=== PATIENT | female | born 1960 | race Caucasian/White ===

== ENCOUNTER 2018-11-02 17:55 | Inpatient (IN) ==
--- NOTE | 2018-11-02 19:14 | Emergency Department Note ---
Disposition Clinical Impression: Weakness, UTI (urinary tract infection), Diabetes, Hypokalemia Disposition: Admitted As Inpatient Condition: Fair Referrals: David Cardenas, ASSOCIATE PROF[employer] [Primary Care Provider] - Forms: ED Satisfaction Letter Time of Dis[facility]: 20:23 [facility]ness HPI - General Chief complaint: ED Weakness Stated complaint: Rib Pain, Back Pain Source: patient Limitations: no limitations - History of Present Illness HPI Narrative: 58-year-old female who presents to the emergency room his had frequent falls since the beginning of the year she could recall one on the first the third the seventh around multiple other falls since then for the last 2 weeks she has not gotten up off the couch she is had food delivered to her house every other day because she is unable to get them fixed it has not been off the couch 2 weeks patient states that her was taking care of her until he went into hospice and her grandson was staying with her help in getting food to until they had no water at the house and they are using heat with 3 electric heater's stable as result though she has not been off the couch in 2 weeks and she was able to reach her self which had just out of battery left she called 911 today patient states that she hurts on the left chest and rib area she is been unable to get up states it hurts to breathe states that she has had no calf pain no swelling she has had cough congestion she has had no neck pain no neck stiffness she has had urgency frequency she denies though any additional complaints she is a moderate historian systems have been reviewed and otherwise negative Patient has not checked her sugar she has not been able to get to her medications in the last couple of days Pt Subjective Complaint: generalized weakness/fatigue Onset (ago): week(s) (3-4) Duration: constant, gradually worsening Location: generalized Migration: other (global) Pain Severity: severe Pain Scale: 10 If pain, quality: aching Improves with: none Worsens with: none Context: trauma/injury (from falls ) Associated symptoms: Reports: chest pain, loss of appetite, myalgias. Denies: confusion, dark stools, diaphoresis, dysuria, easy bruising, fever/chills, headaches, nausea/vomiting, rash, shortness of breath, syncope - Related Data Home Medications Medication Instructions Recorded Confirmed Baclofen [Lioresal] 10 mg PO QID 09/10/15 08/22/16 Duloxetine [Cymbalta] 60 mg PO DAILY 06/11/15 05/23/16 Furosemide [Lasix] 80 mg PO DAILY 06/11/15 05/23/16 Gabapentin [Neurontin] 600 mg PO TID 06/11/15 05/23/16 Glimepiride [Amaryl] 4 mg PO DAILY 06/11/15 05/23/16 Hydrocodone/Acetaminophen [[place] 0.5 tab PO TID 06/11/15 05/23/16 5-325 Tablet] Imipramine HCl [Tofranil] 50 mg PO HS 06/11/15 05/23/16 Metoprolol [Lopressor] 100 mg PO BID 06/11/15 05/23/16 [place]-3S/Dha/Epa/Fish Oil [Fish 1,400 mg PO DAILY 06/11/15 05/23/16 Oil 1,200 mg Softgel] Omeprazole [PriLOSEC] 40 mg PO DAILY 06/11/15 05/23/16 Ropinerole [Requip] 1 mg PO TID 06/11/15 05/23/16 Spironolactone [Aldactone] 25 mg PO DAILY 06/11/15 05/23/16 Previous Rx's Medication Instructions Recorded cephALEXin [Keflex] 500 mg PO BID #20 capsule 05/23/16 Allergies Allergy/AdvReac Type Severity Reaction Status Date / Time levofloxacin [From Levaquin] AdvReac Muscle Pain Verified 06/11/15 21:49 [id number]-Hwa Reductase AdvReac Muscle Pain Verified 06/11/15 21:49 Inhibitor [Statins] All systems ED: reviewed and negative except as stated. Review of Systems: As Per HPI Constitutional: Reports: weakness. Denies: fever, chills Eyes: Denies: eye pain, eye discharge ENT ED: Denies: ear pain, throat pain, dental pain Cardiovascular: Reports: chest pain. Denies: palpitations, dyspnea on exertion, syncope Respiratory: Reports: cough, dyspnea, wheezes Gastrointestinal: Denies: abdominal pain, nausea, vomiting Genitourinary: Reports: urgency, dysuria, frequency Musculoskeletal: Denies: back pain, neck pain Integumentary: Denies: rash, abrasion Neurological: Reports: weakness. Denies: headache Psychiatric: Denies: anxiety, depression Endocrine: Reports: fatigue Hematological/Lymphatic: Denies: easy bleeding Allergic/Immunologic: Denies: facial swelling Past Medical History - Past Medical History Attestation: Yes The following information was validated with the patient. PMFSH Narrative: reportedly in hospice ad grandson now with mom where there is water and food and heat Source: patient, old records reviewed, nursing notes reviewed, other (no family presentwith her ) Medical history: Reports: arthritis, diabetes, fibromyalgia, GERD, hyperlipidemia, hypertension, migraine, peripheral artery disease, other Surgical history: Reports: cholecystectomy, hysterectomy, orthopedic, other (Scope left knee, right foot surgery, bilateral carpal tunnel), other (Bladder suspension) Psychiatric history: Reports: anxiety, bipolar, depression - Social History Smoking Status: Current every day smoker Smokeless Tobacco Status: No Alcohol use: Reports: none Drug use: Reports: none Physical Exam - General Limitations: no limitations General appearance: alert, in no apparent distress, obese - Head Head exam: atraumatic, normocephalic, normal inspection - Eye Eye exam: Present: normal appearance, PERRL, EOMI - ENT ENT exam: normal exam, normal oropharynx, mucous membranes moist, TM's normal bilaterally, normal external ear exam - Neck Neck exam: Present: normal inspection, full ROM, trachea midline - Chest Chest inspection: Present: normal inspection, symmetric chest wall rise - Respiratory Respiratory exam: Present: normal lung sounds bilaterally - Cardiovascular Cardiovascular exam: Present: regular rate, normal rhythm, normal heart sounds - Abdominal Exam Abdominal exam: Present: soft, Non-Tender, diminished bowel sounds. Absent: ma ss, pulsatile mass - Extremities Exam Extremities exam: Present: normal inspection, full ROM, normal capillary refill. Absent: tenderness, pedal edema, joint swelling, calf tenderness - Expanded Lower Extremity Exam Neurovascular/Tendon exam: Present: normal capillary refill, normal fine/light touch Gait: not tested/not observed - Back Exam Back exam: Present: normal inspection, full ROM. Absent: muscle spasm - Neurological Exam Neurological exam: Present: alert, oriented X3, CN II-XII intact, normal gait - Psychiatric Psychiatric exam: Present: normal affect, normal mood - Skin Skin exam: Present: warm, dry, intact, normal color, other (For her history of the tissue was not may seated around the pelvic region) Course Course Narrative: Patient was immediately seen and examined patient had a slowly moving patient fully catheter placed patient was then admitted transfer to [facility] stable Vital Signs Temperature 97.9 F 11/02/18 18:00 Pulse Rate 76 11/02/18 18:00 Respiratory Rate 16 11/02/18 18:00 Blood Pressure 164/81 11/02/18 18:00 O2 Sat by Pulse Oximetry 98 11/02/18 18:00 Temperature 97.9 F 11/02/18 18:00 Pulse Rate 76 11/02/18 18:00 Respiratory Rate 16 11/02/18 18:00 Blood Pressure 164/81 11/02/18 18:00 O2 Sat by Pulse Oximetry 98 11/02/18 18:00 Oxygen Delivery Oxygen Delivery Room Air Weakness - Differential Diagnosis Differential Diagnosis: Likely: anemia, hypoglycemia, sepsis/infection, dehydration, medication effect, stroke, metabolic, thyroid/endocrine disorder - Medical Records Medical records reviewed: Yes I reviewed the patient's medical records. - Lab Data Lab results reviewed: Yes I reviewed the patient's lab results. Result diagrams: 11/02/18 19:09 11/02/18 19:09 Lab Results 11/02/18 11/02/18 11/02/18 Range/Units 19:09 19:09 19:09 WBC 15.4 H (4.3-11.1) K/mcL RBC 4.55 (3.82-4.97) M/mcL Hgb 13.4 (11.5-15.4) g/dL Hct 39.9 (35.3-44.9) % MCV 87.7 (83.0-100.0) fL MCH 29.5 (28.0-33.3) pg MCHC 33.6 (31.6-35.5) g/dL RDW 13.1 (11.5-14.5) % Plt Count 404 H (140-400) K/mcL MPV 10.8 (9.4-12.4) fL Immature Gran % 0.6 (0-4) % Seg Neutrophils % 76.0 % Lymphocytes % 17.6 % Monocytes % 4.5 % Eosinophils % 0.9 % Basophils % 0.4 % Neutrophils # 11.7 H (1.6-8.9) K/mcL Lymphocytes # 2.7 (0.6-4.6) K/mcL Monocytes # 0.7 (0.0-1.3) K/mcL Eosinophils # 0.1 (0.0-0.6) K/mcL Basophils # 0.1 (0.0-0.2) K/mcL PT 13.6 H (9.4-12.1) Seconds INR 1.2 APTT 33.0 (26.0-36.0) Seconds Sodium (136-145) mEq/L Potassium (3.5-5.1) mEq/L Chloride (98-107) mEq/L Carbon Dioxide (23-29) mEq/L BUN (8-23) mg/dL Creatinine (0.60-1.20) mg/dL Est GFR ( Amer) (> 60) Est GFR (Non-Af Amer) (> 60) BUN/Creatinine Ratio (6-26) Glucose (70-105) mg/dL Calculated Osmolality (280-300) Lactic Acid (0.5-2.2) mmol/L Calcium (8.6-10.3) mg/dL Magnesium (1.6-2.6) mg/dL Total Bilirubin (0.3-1.0) mg/dL AST (13-39) Units/L ALT (7-52) Units/L Alkaline Phosphatase (34-104) Units/L Troponin I (< 0.04) ng/mL Serum Total Protein (6.4-8.9) g/dL Albumin (3.5-5.7) g/dL Globulin (2.4-3.5) g/dL Albumin/Globulin Ratio (1.1-2.2) TSH (0.340-5.600) mcIU/mL Urine Color (Yellow) Urine Clarity (Clear) Urine pH (5.0-8.0) pH Units Ur Specific [facility] (1.010-1.025) Urine Protein (Neg-Trace) mg/dL Urine Glucose (UA) (Normal) mg/dL Urine Ketones (Negative) mg/dL Urine Blood (Negative) Urine Nitrite (Negative) Urine Bilirubin (Negative) Urine Urobilinogen (Normal) mg/dL Ur Leukocyte Esterase (Negative) Urine Microscopic RBC (0-3) per hpf Urine Microscopic WBC (0-3) per hpf Ur Squamous Epith Cells (None-Few) per lpf Urine Bacteria (None-Few) per hpf Ur Culture Indicated? (NO) 11/02/18 11/02/18 11/02/18 Range/Units 19:09 19:09 19:24 WBC (4.3-11.1) K/mcL RBC (3.82-4.97) M/mcL Hgb (11.5-15.4) g/dL Hct (35.3-44.9) % MCV (83.0-100.0) fL MCH (28.0-33.3) pg MCHC (31.6-35.5) g/dL RDW (11.5-14.5) % Plt Count (140-400) K/mcL MPV (9.4-12.4) fL Immature Gran % (0-4) % Seg Neutrophils % % Lymphocytes % % Monocytes % % Eosinophils % % Basophils % % Neutrophils # (1.6-8.9) K/mcL Lymphocytes # (0.6-4.6) K/mcL Monocytes # (0.0-1.3) K/mcL Eosinophils # (0.0-0.6) K/mcL Basophils # (0.0-0.2) K/mcL PT (9.4-12.1) Seconds INR APTT (26.0-36.0) Seconds Sodium 135 L (136-145) mEq/L Potassium 2.9 L (3.5-5.1) mEq/L Chloride 98 (98-107) mEq/L Carbon Dioxide 29 (23-29) mEq/L BUN 19 (8-23) mg/dL Creatinine 0.71 (0.60-1.20) mg/dL Est GFR ( Amer) > 60 (> 60) Est GFR (Non-Af Amer) > 60 (> 60) BUN/Creatinine Ratio 27 H (6-26) Glucose 123 H (70-105) mg/dL Calculated Osmolality 284 (280-300) Lactic Acid 1.8 (0.5-2.2) mmol/L Calcium 9.2 (8.6-10.3) mg/dL Magnesium 1.8 (1.6-2.6) mg/dL Total Bilirubin 0.3 (0.3-1.0) mg/dL AST 15 (13-39) Units/L ALT 12 (7-52) Units/L Alkaline Phosphatase 105 H (34-104) Units/L Troponin I < 0.03 (< 0.04) ng/mL Serum Total Protein 6.6 (6.4-8.9) g/dL Albumin 3.6 (3.5-5.7) g/dL Globulin 3.0 (2.4-3.5) g/dL Albumin/Globulin Ratio 1.2 (1.1-2.2) TSH 5.040 (0.340-5.600) mcIU/mL Urine Color Yellow (Yellow) Urine Clarity Cloudy A (Clear) Urine pH 6.0 (5.0-8.0) pH Units Ur Specific [facility] >= 1.030 H (1.010-1.025) Urine Protein >=300 H (Neg-Trace) mg/dL Urine Glucose (UA) Normal (Normal) mg/dL Urine Ketones Negative (Negative) mg/dL Urine Blood Trace-lysed H (Negative) Urine Nitrite Positive A (Negative) Urine Bilirubin Small H (Negative) Urine Urobilinogen 2.0 H (Normal) mg/dL Ur Leukocyte Esterase Negative (Negative) Urine Microscopic RBC 0-3 (0-3) per hpf Urine Microscopic WBC 5-15 H (0-3) per hpf Ur Squamous Epith Cells Moderate H (None-Few) per lpf Urine Bacteria Many H (None-Few) per hpf Ur Culture Indicated? YES A (NO) - Radiology Data Radiology results reviewed: Yes I reviewed the patient's radiology results. ITS Impressions Chest X-Ray 11/02/18 18:30 IMPRESSION: No acute findings. D/ / Luis Graham MD / Luis Graham MD Interpreting Provider: Luis Graham MD Critical Care Time Critical Care Time: No
[2018-11-02 19:23] LABS: Basophils # 0.1 K/mcL (0.0-0.2); Basophils % 0.4 %; Eosinophils # 0.1 K/mcL (0.0-0.6); Eosinophils % 0.9 %; Hematocrit 39.9 % (35.3-44.9); Hemoglobin 13.4 g/dL (11.5-15.4); Immature Granulocytes % 0.6 % (0-4); Lymphocytes # 2.7 K/mcL (0.6-4.6); Lymphocytes % 17.6 %; Mean Corpuscular HGB Conc 33.6 g/dL (31.6-35.5); Mean Corpuscular Hemoglobin 29.5 pg (28.0-33.3); Mean Corpuscular Volume 87.7 fL (83.0-100.0); Mean Platelet Volume 10.8 fL (9.4-12.4); Monocytes # 0.7 K/mcL (0.0-1.3); Monocytes % 4.5 %; Neutrophils # 11.7 K/mcL (1.6-8.9); Platelet Count 404 K/mcL (140-400); Red Blood Count 4.55 M/mcL (3.82-4.97); Red Cell Distribution Width 13.1 % (11.5-14.5)
[2018-11-02 19:28] LABS: Bilirubin,Urine Small (Negative); Blood,Urine Trace-lysed (Negative); Clarity,Urine Cloudy (Clear); Color,Urine Yellow (Yellow); Glucose,Urine (UA) Normal (Normal); Ketones,Urine Negative (Negative); Leukocyte Esterase,Urine Negative (Negative); Nitrite,Urine Positive (Negative); Protein,Urine >=300 mg/dL (Neg-Trace); Specific Gravity,Urine >= 1.030 (1.010-1.025)
[2018-11-02 19:33] LABS: INR 1.2; Prothrombin Time 13.6 Seconds (9.4-12.1)
[2018-11-02 19:34] LABS: Alanine Aminotransferase 12 Units/L (7-52); Albumin 3.6 g/dL (3.5-5.7); Albumin/Globulin Ratio 1.2 (1.1-2.2); Alkaline Phosphatase 105 Units/L (34-104); Aspartate Amino Transferase 15 Units/L (13-39); BUN/Creatinine Ratio 27 (6-26); Bilirubin,Total 0.3 mg/dL (0.3-1.0); Blood Urea Nitrogen 19 mg/dL (8-23); Calcium 9.2 mg/dL (8.6-10.3); Carbon Dioxide 29 mEq/L (23-29); Chloride 98 mEq/L (98-107); Glucose 123 mg/dL (70-105); Magnesium 1.8 mg/dL (1.6-2.6); Osmolality,Calculated 284 (280-300); Potassium 2.9 mEq/L (3.5-5.1); Sodium 135 mEq/L (136-145); Total Protein 6.6 g/dL (6.4-8.9); eGFR For Non-African Americans > 60 (> 60)
[2018-11-02 19:35] LABS: Troponin I < 0.03 ng/mL (< 0.04)
[2018-11-02 19:50] LABS: Bacteria,Urine Many per hpf (None-Few); RBC,Urine 0-3 per hpf (0-3); Squamous Epithelial Cell,Urine Moderate per lpf (None-Few)
[2018-11-02] MEDS ORDERED: Potassium Effervescent 25 MEQ TABLET.EFF PO ONE (20:13)
[2018-11-02] MEDS ORDERED: 0.9 % Sodium Chloride 1,000 ML IVC SCH (20:15)
[2018-11-02] MEDS ORDERED: cloNIDine HCl 0.1 MG TABLET PO STA (20:26)
[2018-11-02] MEDS ORDERED: Naloxone 0.4 MG/ML INJ IVP PRN (22:07)
[2018-11-02] MEDS ORDERED: D5% in Water 1,000 ML IVC PRN (22:07)
[2018-11-02] MEDS ORDERED: Gabapentin 300 MG CAPSULE PO SCH (22:07)
[2018-11-02] MEDS ORDERED: rOPINIRole 1 MG TABLET PO SCH (22:07)
[2018-11-02] MEDS ORDERED: Acetaminophen 325 MG TABLET PO PRN (22:07)
[2018-11-02] MEDS ORDERED: Baclofen 10 MG TABLET PO SCH (22:07)
[2018-11-02] MEDS ORDERED: *HR* HYDROcodone/Acet 5/325 mg TABLET PO SCH (22:07)
[2018-11-02] MEDS ORDERED: *HR* Dextrose 50 % in Water (Syg) 50 ML SYRINGE IVP PRN (22:07)
[2018-11-02] MEDS ORDERED: Dextrose Gel 15 GM/37.5 ML TUBE PO PRN ×2 (22:07)
[2018-11-02] MEDS: 0.9 % Sodium Chloride 1,000 ML IVC SCH (23:00)
[2018-11-03] MEDS: Metoprolol 100 MG TABLET PO SCH ×3 (01:39→21:17)
[2018-11-03] MEDS: Ibuprofen 400 MG TABLET PO PRN ×3 (04:29→23:25)
[2018-11-03] MEDS: 0.9 % Sodium Chloride 1,000 ML IVC SCH ×3 (04:42→21:32)
[2018-11-03 06:22] LABS: Basophils # 0.1 K/mcL (0.0-0.2); Basophils % 0.5 %; Eosinophils # 0.2 K/mcL (0.0-0.6); Eosinophils % 1.3 %; Hematocrit 36.1 % (35.3-44.9); Hemoglobin 11.9 g/dL (11.5-15.4); Immature Granulocytes % 0.4 % (0-4); Lymphocytes # 3.1 K/mcL (0.6-4.6); Lymphocytes % 25.9 %; Mean Corpuscular Hemoglobin 28.5 pg (28.0-33.3); Mean Corpuscular Volume 86.6 fL (83.0-100.0); Mean Platelet Volume 10.4 fL (9.4-12.4); Monocytes # 0.6 K/mcL (0.0-1.3); Monocytes % 5.2 %; Neutrophils # 7.9 K/mcL (1.6-8.9); Platelet Count 349 K/mcL (140-400); Red Blood Count 4.17 M/mcL (3.82-4.97); Red Cell Distribution Width 13.1 % (11.5-14.5); Segmented Neutrophils % 66.7 %
[2018-11-03 06:23] LABS: INR 1.2; Prothrombin Time 13.9 Seconds (9.4-12.1)
[2018-11-03 06:26] LABS: Activated Partial Thrombo Time 30.6 Seconds (26.0-36.0)
[2018-11-03 06:35] LABS: BUN/Creatinine Ratio 23 (6-26); Blood Urea Nitrogen 17 mg/dL (8-23); Calcium 8.4 mg/dL (8.6-10.3); Carbon Dioxide 28 mEq/L (23-29); Chloride 104 mEq/L (98-107); Glucose 102 mg/dL (70-105); Osmolality,Calculated 286 (280-300); Sodium 137 mEq/L (136-145); eGFR For Non-African Americans > 60 (> 60)
[2018-11-03] MEDS: Insulin LISPRO 300 UNITS/3 ML VIAL SQ SCH ×3 (07:55→17:17)
[2018-11-03] MEDS: Aspirin 81 MG TAB.CHEW PO SCH (08:01)
[2018-11-03] MEDS: *HR* Glimepiride 4 MG TABLET PO SCH (08:01)
[2018-11-03] MEDS: rOPINIRole 1 MG TABLET PO SCH ×3 (08:01→21:17)
[2018-11-03] MEDS: Nystatin POWDER 30 GM BOTTLE TP SCH ×3 (08:02→21:16)
[2018-11-03] MEDS: (Fish Oil 1,200 Mg Softgel) PO SCH (08:02)
[2018-11-03] MEDS: TRADJENTA PO SCH ×2 (08:04→08:30)
[2018-11-03] MEDS ORDERED: Spironolactone 25 MG TABLET PO SCH (09:00)
[2018-11-03] MEDS ORDERED: Potassium Effervescent 25 MEQ TABLET.EFF PO ONE (09:00)
[2018-11-03] MEDS ORDERED: *HR* Glimepiride 4 MG TABLET PO SCH (09:00)
[2018-11-03] MEDS ORDERED: Furosemide 20 MG TABLET PO SCH (09:00)
[2018-11-03] MEDS ORDERED: *HR* Enoxaparin 40 MG/0.4 ML SYRINGE SQ ONE (15:37)
--- NOTE | 2018-11-03 15:46 | Internal Med History&Physical ---
Date of Encounter: 11/04/18 Time of Encounter: 15:15 Assessment and Plan (1) Cellulitis and abscess of other specified site Current visit: Yes Status: Acute cellulitis and excoriation left abd skin folds will ise rocephin IV will use topical aloe vesta care has leukocytosis will follow lab (2) UTI (urinary tract infection) Current visit: Yes Status: Acute culture pending will treat with IV rocephin until culture returns Qualifiers: Urinary tract infection type: acute cystitis Hematuria presence: without hematuria Qualified Code(s): N30.00 - Acute cystitis without hematuria (3) Hypokalemia Current visit: Yes Status: Acute likely dietary cause as has not been eating well will replace and repeat labs (4) Diabetes Current visit: Yes Status: Acute pt has not been taking medication will use slide scale for now and slowly restart home meds Qualifiers: Diabetes mellitus type: type 2 Diabetes mellitus complication detail: with dermatitis Qualified Code(s): E11.620 - Type 2 diabetes mellitus with diabetic dermatitis Internal Medicine - H&P: HPI Chief complaint: abdominal pannus cellulitis, uti Admitted From: Home History of present illness: Ms. Barkley is a 58 year old female with CC of cellulitis abdominal folds and UTI - History of Present Illness HPI Narrative: 58-year-old female who presents to the emergency room after calling 911 from home. She reports she has been progressively weaker and had not been able to get off couch without falling . She reports felt hot and noted some pain with urination. She noted redness spreading around left side of abdominal pannus fold. She says the area was itching and had thick white material in the folds of skin, says she scratched at it and now it hurts. 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 Says she was told she needed to have her knees replaced and has not done that. Says she has a walker at home. Says has had frequent falls since the beginning of the year. Her was put in the hospital and so she has had food delivered to her house every other day . Says her grandson was staying with her, but she says no water or heat at the house . So she says he left. Pt says she used 3 electric heater's . Pt reported to have bug on her person in ED avilez and/or bedbug was treated PT denies vomiting, denies CP, denies calf pain no swelling . She says she does smoke, says she used to smoke 4 PPD, Says she could not sleep so smoked all the time. says now she does not smoke as much. She is a vague historian. She is on seroguel at home.for bipolar disease. Denies SI. She has type 2 diabetes. Says she has not had her medication at home for about a week. - Related Data Home Medications Medication Instructions Recorded Confirmed Baclofen [Lioresal] 10 mg PO QID 06/11/15 05/23/16 Duloxetine [Cymbalta] 60 mg PO DAILY 06/11/15 05/23/16 Furosemide [Lasix] 80 mg PO DAILY 06/11/15 05/23/16 Gabapentin [Neurontin] 600 mg PO TID 06/11/15 05/23/16 Glimepiride [Amaryl] 4 mg PO DAILY 06/11/15 05/23/16 Hydrocodone/Acetaminophen [[place] 0.5 tab PO TID 06/11/15 05/23/16 5-325 Tablet] Imipramine HCl [Tofranil] 50 mg PO HS 06/11/15 05/23/16 Metoprolol [Lopressor] 100 mg PO BID 06/11/15 05/23/16 [place]-3S/Dha/Epa/Fish Oil [Fish 1,400 mg PO DAILY 06/11/15 05/23/16 Oil 1,200 mg Softgel] Omeprazole [PriLOSEC] 40 mg PO DAILY 06/11/15 05/23/16 Ropinerole [Requip] 1 mg PO TID 06/11/15 05/23/16 Spironolactone [Aldactone] 25 mg PO DAILY 06/11/15 05/23/16 Previous Rx's Medication Instructions Recorded cephALEXin [Keflex] 500 mg PO BID #20 capsule 05/23/16 Allergies Allergy/AdvReac Type Severity Reaction Status Date / Time levofloxacin [From Levaquin] AdvReac Muscle Pain Verified 06/11/15 21:49 [id number]-Vrq Reductase AdvReac Muscle Pain Verified 06/11/15 21:49 Inhibitor [Statins] All systems Review: reviewed and negative except as stated. Past Medical History - Past Medical History Medical history: Reports: arthritis, diabetes, fibromyalgia, GERD, hyperlipidemia, hypertension, migraine, peripheral artery disease, Surgical history: Reports: cholecystectomy, hysterectomy, orthopedic, other (Scope left knee, right foot surgery, bilateral carpal tunnel), (Bladder suspension) Psychiatric history: Reports: anxiety, bipolar, depression - Social History Smoking Status: Current every day smoker was up to 4 ppd she says in past adv ised her to stop smoking Smokeless Tobacco Status: No Alcohol use: Reports: none Drug use: Reports: none Physical Exam - General General appearance: alert, unkempt body odor irritable but oriented x 3, obese - Head Head exam: atraumatic, normocephalic, normal inspection - Eye Eye exam: Present: normal appearance, PERRL, EOMI - ENT ENT exam: normal oropharynx, mucous membranes dry, TM's normal bilaterally, normal external ear exam - Neck Neck exam: Present: full ROM, trachea midline thick neck - Chest Chest inspection: Present: normal inspection, symmetric chest wall rise - Respiratory Respiratory exam: Present: normal lung sounds bilaterally - Cardiovascular Cardiovascular exam: Present: regular rate, normal rhythm, normal heart sounds - Abdominal Exam Abdominal exam: large obese abd with multiple pannus folds left side has marked excoriations, surrounded by dark red erythema and warmth - Extremities Exam Extremities exam: Present: normal inspection, full ROM, arthritic changes bilateral knees . Absent: tenderness, pedal edema, joint swelling, calf tenderness - Neurological Exam Neurological exam: Present: alert, oriented X3, CN II-XII intact, gait not tested no gross deficits - Psychiatric Psychiatric exam: Present: irritable follows commands Past Med Surg Social Fam HX - Past Medical History Medical history: arthritis, diabetes, fibromyalgia, GERD, hyperlipidemia, hypertension, migraine, peripheral artery disease, other Psychiatric history: anxiety, bipolar, depression - Past Surgical History Surgical History: cholecystectomy, hysterectomy, orthopedic, other, other - Social History Smoking Status: Current every day smoker Smokeless Tobacco Status: No Alcohol use: none Drug use: none - Family History Mother History Unknown: Yes Father History Unknown: Yes Internal Medicine - H&P: Meds Duloxetine [Cymbalta] 60 mg PO DAILY 06/11/15 [History] Glimepiride [Amaryl] 8 mg PO DAILY 06/11/15 [History] Metoprolol [Lopressor] 100 mg PO BID 06/11/15 [History] [place]-3S/Dha/Epa/Fish Oil [Fish Oil 1,200 mg Softgel] 1,400 mg PO DAILY 06/11/15 [History] Omeprazole [PriLOSEC] 20 mg PO DAILY 06/11/15 [History] Ropinerole [Requip] 1 mg PO QPM 06/11/15 [History] Aspirin 81 mg PO DAILY 11/02/18 [History] Linagliptin [Tradjenta] 5 mg PO DAILY 11/02/18 [History] Ropinirole HCl [Requip] 4 mg PO HS 11/02/18 [History] rOPINIRole [Requip] 1 mg PO DAILY 11/02/18 [History] Quetiapine Fumarate [Seroquel] 50 mg PO 2100 11/03/18 [History] Allergy/AdvReac Type Severity Reaction Status Date / Time levofloxacin [From Levaquin] AdvReac Muscle Pain Verified 06/11/15 21:49 [id number]-[id number] Reductase AdvReac Muscle Pain Verified 06/11/15 21:49 Inhibitor [Statins] All Systems PM: A 10-system review of systems was performed and is negative for pertinent findings except as documented above in the HPI. - Constitutional Vitals: Temp Pulse Resp BP Pulse Ox 98.1 F 67 16 119/73 97 11/03/18 11:00 11/03/18 11:00 11/03/18 11:00 11/03/18 11:00 11/03/18 11:00 Internal Med - H&P Results - Labs CBC & Chem 7: 11/03/18 05:40 11/03/18 05:40 Labs: Short CBC 11/02/18 11/03/18 Range/Units 19:09 05:40 WBC 15.4 H 11.8 H (4.3-11.1) K/mcL Hgb 13.4 11.9 D (11.5-15.4) g/dL Hct 39.9 36.1 (35.3-44.9) % Plt Count 404 H 349 (140-400) K/mcL Neutrophils # 11.7 H 7.9 (1.6-8.9) K/mcL BMP 11/02/18 11/03/18 19:09 05:40 Sodium 135 L 137 Potassium 2.9 L 3.0 L Chloride 98 104 Carbon Dioxide 29 28 BUN 19 17 Creatinine 0.71 0.73 Glucose 123 H 102 Calcium 9.2 8.4 L Cardiac Enzymes 11/02/18 Range/Units 19:09 Troponin I < 0.03 (< 0.04) ng/mL Liver Function 11/02/18 Range/Units 19:09 Total Bilirubin 0.3 (0.3-1.0) mg/dL AST 15 (13-39) Units/L ALT 12 (7-52) Units/L Alkaline Phosphatase 105 H (34-104) Units/L Albumin 3.6 (3.5-5.7) g/dL Urine 11/02/18 Range/Units 19:24 Urine Color Yellow (Yellow) Urine Clarity Cloudy A (Clear) Urine pH 6.0 (5.0-8.0) pH Units Ur Specific [place] >= 1.030 H (1.010-1.025) Urine Protein >=300 H (Neg-Trace) mg/dL Urine Glucose (UA) Normal (Normal) mg/dL - Impressions ITS Impressions Chest X-Ray 11/02/18 18:30 IMPRESSION: No acute findings. D/ / Luis Graham MD / Luis Graham MD Interpreting Provider: Luis Graham MD
[2018-11-03] MEDS: Miconazole 2% ointment 114 GM TUBE TP SCH (16:22)
[2018-11-04] MEDS: *HR* Enoxaparin 40 MG/0.4 ML SYRINGE SQ SCH (05:40)
[2018-11-04] MEDS: Ibuprofen 400 MG TABLET PO PRN ×2 (05:44→23:14)
[2018-11-04] MEDS: 0.9 % Sodium Chloride 1,000 ML IVC SCH ×3 (05:47→23:07)
[2018-11-04] MEDS: *HR* Glimepiride 4 MG TABLET PO SCH (08:24)
[2018-11-04] MEDS: Insulin LISPRO 300 UNITS/3 ML VIAL SQ SCH ×3 (08:24→16:33)
[2018-11-04] MEDS: Metoprolol 100 MG TABLET PO SCH ×2 (08:28→20:34)
[2018-11-04] MEDS: Nystatin POWDER 30 GM BOTTLE TP SCH ×3 (08:28→20:34)
[2018-11-04] MEDS: Miconazole 2% ointment 114 GM TUBE TP SCH (08:28)
[2018-11-04] MEDS: Aspirin 81 MG TAB.CHEW PO SCH (08:28)
[2018-11-04] MEDS: rOPINIRole 1 MG TABLET PO SCH ×3 (08:28→20:34)
[2018-11-04] MEDS: (Fish Oil 1,200 Mg Softgel) PO SCH (08:28)
[2018-11-04] MEDS: TRADJENTA PO SCH (08:29)
--- NOTE | 2018-11-04 13:09 | Internal Med Progress Note ---
Date of Encounter: 11/04/18 Time of Encounter: 12:30 - Assessment and plan (1) Cellulitis and abscess of other specified site Current Visit: Yes Status: Acute (2) UTI (urinary tract infection) Current Visit: Yes Status: Acute Qualifiers: Urinary tract infection type: acute cystitis Hematuria presence: without hematuria Qualified Code(s): N30.00 - Acute cystitis without hematuria (3) Hypokalemia Current Visit: Yes Status: Acute (4) Diabetes Current Visit: Yes Status: Acute Qualifiers: Diabetes mellitus type: type 2 Diabetes mellitus complication detail: with dermatitis Qualified Code(s): E11.620 - Type 2 diabetes mellitus with diabetic dermatitis; Z79.4 - [facility]entiary (current) use of insulin - Subjective Interval history: Assessment and Plan (1) Cellulitis and abscess of other specified site Current visit: Yes Status: Acute cellulitis and excoriation left abd skin folds will ise rocephin IV will use topical aloe vesta care has leukocytosis will follow lab (2) UTI (urinary tract infection) Current visit: Yes Status: Acute culture pending will treat with IV rocephin until culture returns Qualifiers: Urinary tract infection type: acute cystitis Hematuria presence: without hematuria Qualified Code(s): N30.00 - Acute cystitis without hematuria (3) Hypokalemia Current visit: Yes Status: Acute likely dietary cause as has not been eating well will replace and repeat labs (4) Diabetes Current visit: Yes Status: Acute pt has not been taking medication will use slide scale for now and restart amaryl Qualifiers: Diabetes mellitus type: type 2 Diabetes mellitus complication detail: with dermatitis Qualified Code(s): E11.620 - Type 2 diabetes mellitus with diabetic dermatitis (5) Biplolar disorder stable no active hallucinations or suicidal ideations pt is oriented continue seroquel and duloxitine (6) costochondritis use nsaids PT will need Social Service Consult Order placed Interal History 58-year-old female who presented to the emergency room. She has been progressively weaker and had not been able to get off couch without falling . She reports felt hot and noted some pain with urination and frequenc. she says this is somewhat better today still present Her WBC count was high, it is improving today She noted redness spreading around left side of abdominal pannus fold. She says the area was itching and had thick white material in the folds of skin, says she scratched at it and now it hurts. Says it still hurts today She reports some rib tenderness when she moves herself in the bed. Says hurts to press on it. 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 Says she was told she needed to have her knees replaced and has not done that. Says she has a walker at home. Says has had frequent falls since the beginning of the year. Her was put in the hospital and so she has had food delivered to her house every other day . Says her grandson was staying with her, but she says no water or heat at the house . So she says he left. Pt says she used 3 electric heater's . Pt reported to have bug on her person in ED avilez and/or bedbug was treated PT denies vomiting, denies CP, denies calf pain no swelling . She says she does smoke, says she used to smoke 4 PPD, Says she could not sleep so smoked all the time. says now she does not smoke as much. She is a vague historian. She is on seroguel and duloxitine at home.for bipolar disease. Denies SI. She has type 2 diabetes. She has been on amaryl. Says she has not had her medication at home for about a week. Physical Exam - General General appearance: alert, unkempt body odor irritable but oriented x 3, obese - Head Head exam: atraumatic, normocephalic, normal inspection - Eye Eye exam: Present: normal appearance, PERRL, EOMI - ENT ENT exam: normal oropharynx, mucous membranes dry, TM's normal bilaterally, normal external ear exam - Neck Neck exam: Present: full ROM, trachea midline thick neck - Chest Chest inspection: Present: normal inspection, symmetric chest wall rise - Respiratory Respiratory exam: Present: normal lung sounds bilaterally costochondral areas tender to palp. - Cardiovascular Cardiovascular exam: Present: regular rate, normal rhythm, normal heart sounds - Abdominal Exam Abdominal exam: large obese abd with multiple pannus folds left side has marked excoriations, surrounded by dark red erythema and warmth - Extremities Exam Extremities exam: Present: normal inspection, full ROM, arthritic changes bilateral knees . Absent: tenderness, pedal edema, joint swelling, calf tenderness - Neurological Exam Neurological exam: Present: alert, oriented X3, CN II-XII intact, gait not tested no gross deficits - Psychiatric Psychiatric exam: Present: irritable follows commands - Constitutional Vitals: Temp Pulse Resp BP Pulse Ox 98.6 F 68 16 148/79 95 11/04/18 12:00 11/04/18 12:00 11/04/18 12:00 11/04/18 12:00 11/04/18 12:00 Internal Medicine: Result - Labs CBC & Chem 7: 11/03/18 05:40 11/03/18 05:40 - ABG Interpretation ABG results: PT/INR, D-dimer PT 13.9 Seconds (9.4-12.1) H 11/03/18 05:40 Consult Discharge Plan - Plan Referrals: David Cardenas, [employer] [Primary Care Provider] -
[2018-11-05] MEDS: *HR* Enoxaparin 40 MG/0.4 ML SYRINGE SQ SCH (05:21)
[2018-11-05] MEDS: 0.9 % Sodium Chloride 1,000 ML IVC SCH (06:54)
[2018-11-05] MEDS: rOPINIRole 1 MG TABLET PO SCH ×3 (10:00→21:44)
[2018-11-05] MEDS: Insulin LISPRO 300 UNITS/3 ML VIAL SQ SCH ×3 (10:01→17:03)
[2018-11-05] MEDS: Metoprolol 100 MG TABLET PO SCH ×2 (10:01→21:43)
[2018-11-05] MEDS: Aspirin 81 MG TAB.CHEW PO SCH (10:02)
[2018-11-05] MEDS: *HR* Glimepiride 4 MG TABLET PO SCH (10:02)
[2018-11-05] MEDS: Nystatin POWDER 30 GM BOTTLE TP SCH ×3 (10:03→21:43)
[2018-11-05] MEDS: Miconazole 2% ointment 114 GM TUBE TP SCH (10:03)
[2018-11-05] MEDS: (Fish Oil 1,200 Mg Softgel) PO SCH (10:03)
[2018-11-05] MEDS: TRADJENTA PO SCH (10:03)
--- NOTE | 2018-11-05 15:04 | Internal Med Progress Note ---
Date of Encounter: 11/05/18 Time of Encounter: 15:10 - Assessment and plan (1) Cellulitis and abscess of other specified site Current Visit: Yes Status: Acute (2) UTI (urinary tract infection) Current Visit: Yes Status: Acute Qualifiers: Urinary tract infection type: acute cystitis Hematuria presence: without hematuria Qualified Code(s): N30.00 - Acute cystitis without hematuria (3) Hypokalemia Current Visit: Yes Status: Acute (4) Diabetes Current Visit: Yes Status: Acute Qualifiers: Diabetes mellitus type: type 2 Diabetes mellitus complication detail: with dermatitis Qualified Code(s): E11.620 - Type 2 diabetes mellitus with diabetic dermatitis; Z79.4 - nursing home (current) use of insulin - Subjective Interval history: Assessment and Plan (1) Cellulitis and abscess of other specified site Current visit: Yes Status: Acute cellulitis and excoriation left abd skin folds responding rocephin IV will change to po amoxil will use topical aloe vesta care has leukocytosis WBC improving will follow lab (2) UTI (urinary tract infection) Current visit: Yes Status: Acute was treated with improvements with IV Rocephin will change to PO amoxil Qualifiers: Urinary tract infection type: acute cystitis Hematuria presence: without hematuria Qualified Code(s): N30.00 - Acute cystitis without hematuria (3) Hypokalemia Current visit: Yes Status: Acute likely dietary cause as has not been eating well will replace and repeat labs (4) Diabetes Current visit: Yes Status: Acute pt has not been taking medication will use slide scale for now and restart amaryl Qualifiers: Diabetes mellitus type: type 2 Diabetes mellitus complication detail: with dermatitis Qualified Code(s): E11.620 - Type 2 diabetes mellitus with diabetic dermatitis (5) Biplolar disorder stable no active hallucinations or suicidal ideations pt is oriented continue seroquel and duloxitine (6) costochondritis - musculoskeletal chest tenderness use nsaids improving (7) Hypokalemia likely dietary was not eating well prior to admission K low will replace K and recheck labs PT had Social Service Consult and PT She agrees to [facility] - same where her is being treated She has tentatively been accepted for 2/5 Interal History 58-year-old female who presented to the emergency room. She has been progressively weaker and had not been able to get off couch without falling . She reports felt hot and noted some pain with urination and frequenc. she says this is somewhat better today still present. Had leukocytosis Her WBC count was high, it is improving today She noted redness spreading around left side of abdominal pannus fold. She says the area was itching and had thick white material in the folds of skin, says she scratched at it and now it hurts. She reports some rib tenderness when she moves herself in the bed. Says hurts to press on it. 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 Says she was told she needed to have her knees replaced and has not done that. Says she has a walker at home. Says has had frequent falls since the beginning of the year. Her was put in the hospital and so she has had food delivered to her house every other day . Says her grandson was staying with her, but she says no water or heat at the house . So she says he left. Pt says she used 3 electric heater's . Pt reported to have bug on her person in ED avilez and/or bedbug was treated She is agreeable with SNF She had PT eval here Pt denies vomiting, denies CP, denies calf pain no swelling . She says she does smoke, says she used to smoke 4 PPD, Says she could not sleep so smoked all the time. says now she does not smoke as much. She is a vague historian. She is on seroguel and duloxitine at home.for bipol ar disease. Denies SI. She has type 2 diabetes. She has been on amaryl. She had not taken her me dications at home. She was not eating well at home K has been low renal function preserved Her sugars have been stable Physical Exam - General General appearance: alert, unkempt body odor irritable but oriented x 3, obese - Head Head exam: atraumatic, normocephalic, normal inspection - Eye Eye exam: Present: normal appearance, PERRL, EOMI - ENT ENT exam: normal oropharynx, mucous membranes dry, TM's normal bilaterally, normal external ear exam - Neck Neck exam: Present: full ROM, trachea midline thick neck - Chest Chest inspection: Present: normal inspection, symmetric chest wall rise - Respiratory Respiratory exam: Present: normal lung sounds bilaterally costochondral areas tender to palp. - Cardiovascular Cardiovascular exam: Present: regular rate, normal rhythm, normal heart sounds - Abdominal Exam Abdominal exam: large obese abd with multiple pannus folds left side has marked excoriations, surrounded by dark red erythema and warmth - Extremities Exam Extremities exam: Present: normal inspection, full ROM, arthritic changes bilateral knees . Absent: tenderness, pedal edema, joint swelling, calf tenderness - Neurological Exam Neurological exam: Present: alert, oriented X3, CN II-XII intact, gait not tested no gross deficits - Psychiatric Psychiatric exam: Present: irritable follows commands - Constitutional Vitals: Temp Pulse Resp BP Pulse Ox 98.2 F 56 16 129/53 99 11/05/18 14:02 11/05/18 14:02 11/05/18 14:02 11/05/18 14:02 11/05/18 14:02 Internal Medicine: Result - Labs CBC & Chem 7: 11/03/18 05:40 11/03/18 05:40 - ABG Interpretation ABG results: PT/INR, D-dimer PT 13.9 Seconds (9.4-12.1) H 11/03/18 05:40 Consult Discharge Plan - Plan Referrals: David Cardenas, [facility] [Primary Care Provider] -
[2018-11-05] MEDS: Amoxicillin 500 MG CAPSULE PO SCH ×2 (16:30→21:43)
--- NOTE | 2018-11-05 16:33 | Electrocardiograph Report ---
[place] [id number] Test Date: 2018-11-02 Pat Name: Destinee Barkley Department: EDG4 Room: 119 Gender: F Tree [employer] Sh[employer] Worker: : 1960 Requested By: Irma Thomas Order Number: [id number] Reading MD: Tashi Smith Measurements Intervals [place] Rate: 72 P: 7 VA: 50 QRS: 22 QRSD: 89 T: 16 QT: 472 QTc: 517 Interpretive Statements Technically poor tracing - please repeat ECG Sinus rhythm Low voltage, precordial leads Electronically Signed On 11-05-2018 16:32:25 EST by Tashi Smith
[2018-11-05] MEDS ORDERED: Metoprolol 100 MG TABLET PO SCH (21:00)
[2018-11-05] MEDS: Ibuprofen 400 MG TABLET PO PRN (21:44)
[2018-11-06] MEDS: *HR* Enoxaparin 40 MG/0.4 ML SYRINGE SQ SCH (05:13)
[2018-11-06] MEDS ORDERED: amLODIPine 5 MG TABLET PO SCH ×2 (05:15→09:00)
[2018-11-06 05:52] LABS: Hematocrit 32.9 % (35.3-44.9); Hemoglobin 11.1 g/dL (11.5-15.4); Mean Corpuscular HGB Conc 33.7 g/dL (31.6-35.5); Mean Corpuscular Hemoglobin 29.4 pg (28.0-33.3); Mean Platelet Volume 10.4 fL (9.4-12.4); Platelet Count 266 K/mcL (140-400); Red Blood Count 3.78 M/mcL (3.82-4.97); Red Cell Distribution Width 13.1 % (11.5-14.5)
[2018-11-06 06:08] LABS: BUN/Creatinine Ratio 12 (6-26); Blood Urea Nitrogen 10 mg/dL (8-23); Calcium 8.5 mg/dL (8.6-10.3); Carbon Dioxide 26 mEq/L (23-29); Chloride 107 mEq/L (98-107); Glucose 85 mg/dL (70-105); Osmolality,Calculated 284 (280-300); Potassium 3.7 mEq/L (3.5-5.1); Sodium 138 mEq/L (136-145); eGFR For Non-African Americans > 60 (> 60)
[2018-11-06] MEDS: Insulin LISPRO 300 UNITS/3 ML VIAL SQ SCH ×2 (08:24→12:36)
[2018-11-06] MEDS ORDERED: *HR* Glimepiride 4 MG TABLET PO SCH (09:00)
[2018-11-06] MEDS: Amoxicillin 500 MG CAPSULE PO SCH ×2 (10:32→16:11)
[2018-11-06] MEDS: Metoprolol 100 MG TABLET PO SCH (10:32)
[2018-11-06] MEDS: Aspirin 81 MG TAB.CHEW PO SCH (10:32)
[2018-11-06] MEDS: rOPINIRole 1 MG TABLET PO SCH (10:33)
[2018-11-06] MEDS: (Fish Oil 1,200 Mg Softgel) PO SCH (10:33)
[2018-11-06] MEDS: TRADJENTA PO SCH (10:34)
[2018-11-06] MEDS: Nystatin POWDER 30 GM BOTTLE TP SCH ×2 (10:34→16:11)
[2018-11-06] MEDS: Miconazole 2% ointment 114 GM TUBE TP SCH (10:35)
--- NOTE | 2018-11-06 11:15 | Physician Discharge Referral ---
Addendum entered and electronically signed by Emeterio Guzman MD 11/06/18 13:50: Original Note: ExtendedCare Referral Info Transfer To: [facility] Provider in Charge after Transfer: PCP Institutional Level of Care: Skilled - Diagnosis (1) Cellulitis and abscess of other specified site Priority: Primary Status: Acute (2) Weakness Priority: Secondary Status: Acute (3) UTI (urinary tract infection) Priority: Primary Status: Acute (4) Diabetes Priority: Secondary Status: Acute Prognosis: Good Aware of Diagnosis: Patient Aware of Prognosis: Patient - Transfer Medications Home Medications: Duloxetine [Cymbalta] 60 mg PO DAILY 06/11/15 [History] Glimepiride [Amaryl] 8 mg PO DAILY 06/11/15 [History] Metoprolol [Lopressor] 100 mg PO BID 06/11/15 [History] [place]-3S/Dha/Epa/Fish Oil [Fish Oil 1,200 mg Softgel] 1,400 mg PO DAILY 06/11/15 [History] Omeprazole [PriLOSEC] 20 mg PO DAILY 06/11/15 [History] Ropinerole [Requip] 1 mg PO QPM 06/11/15 [History] Aspirin 81 mg PO DAILY 11/02/18 [History] Linagliptin [Tradjenta] 5 mg PO DAILY 11/02/18 [History] Ropinirole HCl [Requip] 4 mg PO HS 11/02/18 [History] rOPINIRole [Requip] 1 mg PO DAILY 11/02/18 [History] Quetiapine Fumarate [Seroquel] 50 mg PO 209911/03/18 [History] Losartan [Cozaar] 25 mg PO 209911/04/18 [History] Allergies/Adverse Reactions: Allergy/AdvReac Type Severity Reaction Status Date / Time levofloxacin [From Levaquin] AdvReac Muscle Pain Verified 06/11/15 21:49 Egdrlbc-Esd-Kms Reductase AdvReac Muscle Pain Verified 06/11/15 21:49 Inhibitor [Statins] - Respiratory Orders Smoking Cessation: Smoking cessation has been advised. For more information, call the [place] Tobacco Quit Line at 6-079-YFVE-NOW. - Advance Directives Code Status: Full Code - Mobility Orders Ambulate - Rehabiliation Orders Rehab Potential: Good Rehab Orders: Evaluation for Physical Therapy, Evaluation for Occupational Therapy - Diet Orders No Concentrated Sweets CERTIFICATION: I certify that the transfer of the above named patient to an Extended Care Facility is necessary for the continuing treatment of the diagnosis listed. The above information is true and accurate reflection of patient's current condition. Confidential - Redisclosure prohibited without a patient's written consent.
--- NOTE | 2018-11-06 11:17 | Discharge Summary ---
Addendum entered and electronically signed by Emeterio Guzman MD 11/06/18 14:04: I have personally performed a face to face evaluation on this patient. I have r eviewed and agree with the care plan. History and Exam by me shows: I met patient for the first time, just prior to her discharge. She complains of right lower quadrant abdominal pain which is been present since her fall. She has no change in bowel or bladder or other problems. She denies hematochezia or melena, hematuria, etc. She is eating well and has no other acute complaints. She understands that she is to be discharge and her discharge questions were answered. Escherichia coli returned from her urine culture which was pansensitive and so she is to be discharged on Amoxil for a week. Discussed care with other providers and/or nursing. Patient has no complaint of chest discomfort, dyspnea, orthopnea, palpitations, nausea or vomiting, constipation or diarrhea, other changes in bowel habits, difficulty with urination, rash or itching, or other new complaints, except as mentioned above. Review of systems is otherwise negative. Examination: (Except as mentioned above): General: In no apparent distress. Alert and oriented 3. Nondiaphoretic. Head: Atraumatic and normocephalic. Respiratory: No use of accessory muscles. Lungs are clear throughout. Normal airflow. Cardiovascular: Regular rate and rhythm without murmur appreciated. Abdomen: No hepatosplenomegaly or mass appreciated. Morbidly obese and therefore difficult to palpate deeply. She has minimal right lower quadrant tenderness which seems very superficial, has no guarding or rebound, bowel sounds are normal., Etc. Extremities: No cyanosis clubbing or edema. Skin: Warm and non-diaphoretic with no new lesions noted. She has marked bilateral intertrigo. She will receive Amoxil for a week and follow with physician at the [facility], will need a repeat urine culture at some point. Original Note: - NOTES TO OUTPATIENT PROVIDER Notes to Outpatient Provider: Continue amoxicillin 500 mg TID tab 7 days for E. coli and urine Orders not resulted at time of discharge: Pending orders 11/02/18 19:09 Culture,Blood [BC] Stat Date of Encounter: 11/06/18 Time of Encounter: 11:15 - Discharge Diagnosis (1) Cellulitis and abscess of other specified site Priority: Primary Status: Acute Comments: Left abdominal skinfold. Improving. Continue amoxicillin. (2) Weakness Priority: Primary Status: Acute Comments: Discharging to [facility] for physical therapy. (3) UTI (urinary tract infection) Priority: Primary Status: Acute Comments: WBC improving at 8.3. Continue amoxicillin TID times 7 days Qualifiers: Urinary tract infection type: acute cystitis Hematuria presence: without hematuria Qualified Code(s): N30.00 - Acute cystitis without hematuria (4) Diabetes Priority: Secondary Status: Acute Comments: Amaryl restarted. Continue diabetic diet. 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 Barkley is a 58 year old female Discharge discussed with: patient, nurse, social work - Time Spent with Patient Total time spent providing and/or coordinating discharge services: Less than 30 minutes - Discharge Medications Home Medications: Duloxetine [Cymbalta] 60 mg PO DAILY 06/11/15 [History] Glimepiride [Amaryl] 8 mg PO DAILY 06/11/15 [History] Metoprolol [Lopressor] 100 mg PO BID 06/11/15 [History] [place]-3S/Dha/Epa/Fish Oil [Fish Oil 1,200 mg Softgel] 1,400 mg PO DAILY 06/11/15 [History] Omeprazole [PriLOSEC] 20 mg PO DAILY 06/11/15 [History] Ropinerole [Requip] 1 mg PO QPM 06/11/15 [History] Aspirin 81 mg PO DAILY 11/02/18 [History] Linagliptin [Tradjenta] 5 mg PO DAILY 11/02/18 [History] Ropinirole HCl [Requip] 4 mg PO HS 11/02/18 [History] rOPINIRole [Requip] 1 mg PO DAILY 11/02/18 [History] Quetiapine Fumarate [Seroquel] 50 mg PO 209911/03/18 [History] Losartan [Cozaar] 25 mg PO 209911/04/18 [History] Allergies/Adverse Reactions: Allergy/AdvReac Type Severity Reaction Status Date / Time levofloxacin [From Levaquin] AdvReac Muscle Pain Verified 06/11/15 21:49 Vtlzpgn-Gau-Bzu Reductase AdvReac Muscle Pain Verified 06/11/15 21:49 Inhibitor [Statins] Date of admission: 11/02/18 20:46 Primary care physician: David Cardenas CNP Consults: 11/02/18 22:07 Consult to Heating And Ventilation Engineer [CONS] Routine Reason for SW Consult: Discharge planning. Pt was living in home with no heat, had space heaters, had no assitance and stated was laying on the couch for a week, was put in hospital, pt had insects on her in ED roaches and bed bug reported 11/04/18 12:26 Consult to Occupational Therapy [CONS] Routine Comment: Evaluate, develop and implement POC Reason for Consult: weakness and falls at home Does patient have active BEDREST order?: No Is patient medically & hemodynamically stable?: Yes Consult to Physical Therapy [CONS] Routine Comment: Evaluate, develop and implement POC Reason for Consult: weakness and falls at home Does patient have active BEDREST order?: No Is patient medically & hemodynamically stable?: Yes Discharging clinician: Emeterio Guzman Anticipated date of discharge: 11/06/18 - Constitutional Vitals: Temp Pulse Resp BP Pulse Ox 97.8 F 68 15 178/81 98 11/06/18 08:35 11/06/18 08:35 11/06/18 08:35 11/06/18 08:35 11/06/18 08:35 General appearance: Present: cooperative, A&O X 3, morbidly obese, pleasant, answers questions appropriately - Head Head exam: Present: atraumatic, normocephalic - Eye Eye exam: Present: PERRL, conjuntiva pink, sclera anicteric Pupils: Present: PERRL - Neck Neck exam general surgery: Present: supple, trachea midline. Absent: lymphadenopathy - Respiratory Respiratory exam: Present: CTAB. Absent: accessory muscle use, rales, rhonchi, wheezes - Cardiovascular Cardiovascular exam: Present: RRR, +S1, +S2. Absent: diastolic murmur, gallop, rubs, systolic murmur - GI/Abdominal GI/Abdominal exam: Present: normal bowel sounds, soft, no peritoneal signs. Absent: distended, tenderness - Extremities Exam Extremities exam: Present: warm, radial pulses palpable and symmetrical. Absent: calf tenderness, cyanotic, pedal edema - Neurological Exam Neurological exam: Present: CN II-XII intact, oriented X3, no focal deficits. Absent: pronater drift, facial droop, speech deficit - Skin Skin exam: Present: excoriation Additional comments: excoriation to abd folds with wound in Left abd fold. - Patient Status Disposition: Transfer SNF Condition: Fair Functional capacity at discharge: uses cane/walker Overall status at discharge: patient is not back to baseline - Discharge Instructions Follow Up With: David Cardenas, [employer]ICER [Primary Care Provider] - - Diet and Activity Activity: as per physical therapy Diet: diabetic diet
[2018-11-06 11:29] VITALS: BP 162/75
== END 2018-11-06 16:20 | DRG 603 ==
LOC: EMEROOGRE 17:55 → INPGRE 20:46
PROVIDERS: ADMIT Internal Medicine; ATTEND Internal Medicine